=== PATIENT | male | born 1960 | race Caucasian/White ===

== ENCOUNTER 2016-11-12 22:02 | Emergency (ER) | payer SELFPAY ==
[~2016-11-12] VITALS: Ht 177.8 cm; Wt 97.5 kg
[2016-11-12 22:04] VITALS: BP 187/87; PULSE 94; RESP 14; TEMP 98.8; O2SAT 97
--- NOTE | 2016-11-12 22:52 | PD ---
HPI Chief Complaint: Wound/Suture/Staple Re-Check Time Seen by Provider: 22:35 Travel History International Travel<30 days: No Contact w/Intl Traveler<30days: No Traveled to known affect area: No History of Present Illness HPI 56-year-old male presents requesting suture removal. He was seen here on October 29, registered as Steve Wilkinson, and found to have a laceration to the anterior left shoulder with no neurovascular or bone or muscular involvement. The laceration was repaired in the ED and the patient was discharged. The patient presents today requesting suture removal. He reports that the wound has been healing wellone part of the wound has dehisced some. No fevers or chills. No other complaints. PFSH Past Medical History Cardiovascular Problems: Yes (HTN) Social History Alcohol Use: No Tobacco Use: No Allergies-Medications (Allergen,Severity, Reaction): Coded Allergies: No Known Allergies (Verified Allergy, Unknown, 11/12/16) Review of Systems Except as stated in HPI: all other systems reviewed are Neg Physical Exam Narrative GENERAL: Well-developed well-nourished male in no acute distress SKIN: Warm and dry. A large laceration is noted to the anterior left shoulder. Multiple sutures are in place. There is some wound dehiscence at the corner of the wound. HEAD: Atraumatic. Normocephalic. EYES: Pupils equal and round. No scleral icterus. No injection or drainage. ENT: No nasal bleeding or discharge. Mucous membranes pink and moist. NECK: Trachea midline. No JVD. CARDIOVASCULAR: Regular rate and rhythm. No murmur appreciated. RESPIRATORY: No accessory muscle use. Clear to auscultation. Breath sounds equal bilaterally. MUSCULOSKELETAL: No obvious deformities. Skin as noted above. NEUROLOGICAL: Awake and alert. No obvious cranial nerve deficits. Motor grossly within normal limits. Normal speech. Data Data Last Documented VS Vital Signs Date Time Temp Pulse Resp B/P Pulse Ox O2 Delivery O2 Flow Rate FiO2 11/12/16 22:04 98.8 94 14 187/87 97 Room Air [facility] Medical Decision Making Medical Screen Exam Complete: Yes Emergency Medical Condition: Yes Medical Record Reviewed: Yes Differential Diagnosis Suture removal, wound dehiscence, infected wound Narrative Course The sutures were removed without incident. Steri-Strips were placed for additional reinforcement. He is stable for discharge. Diagnosis Primary Impression: Visit for suture removal Additional Impression: Wound dehiscence Med/Other Pt SpecificInfo: Wound Care Disposition: 01 DISCHARGE HOME Condition: Stable Memo Call Nov 12, 2016 22:52
== END 2016-11-12 23:16 | disposition home or self-care (01) ==
LOC: NEPK 22:02
DX: Z48.02 Encounter for removal of sutures (principal); T81.33XA Disruption of traumatic injury wound repair, initial encounter; I10 Essential (primary) hypertension
CPT/HCPCS: 99281